=== PATIENT | male | born 1980 | race Caucasian/White ===

== ENCOUNTER 2021-03-28 13:33 | Emergency (ER) | payer OTHER, SELFPAY ==
[~2021-03-28] VITALS: Ht 188 cm; Wt 113.4 kg
[2021-03-28 13:33] VITALS: BP_SYST 140
--- NOTE | 2021-03-28 13:33 | NUR ---
PT TRIAGED IN OUTSIDE TENT, AWAITING ER ROOM AVAILABILITY
--- NOTE | 2021-03-28 13:35 | NUR ---
PT STATES THAT HE TESTED + FOR COVID ON 03/23 AND FEELS HORRIBLE. COUGH WITH SOB, BODY ACHES, FEVERS/CHILLS, FATIGUE. STATES HE IS NOT VACCINATED.
--- NOTE | 2021-03-28 14:31 | NUR ---
ER DR. HUGO EXAMINING PT
[2021-03-28 15:03] LABS: BASOPHILS % (AUTO) 0.2 % (0.0-2.0); HEMATOCRIT 46.2 % (36-54); HEMOGLOBIN 15.9 g/dL (14.0-18.0); LYMPHOCYTES # (AUTO) 1.1 K/uL (1.0-5.5); LYMPHOCYTES % (AUTO) 23.4 % (20.5-51.5); MEAN CORPUSCULAR HEMOGLOBIN 30 pg (27-31); MEAN CORPUSCULAR HGB CONC 35 % (32-36); MEAN CORPUSCULAR VOLUME 88 fL (79.0-98.0); MONOCYTES # (AUTO) 0.4 K/uL (0.0-1.0); MONOCYTES % (AUTO) 8.2 % (1.7-9.3); NEUTROPHILS # (AUTO) 3.3 K/uL (1.8-7.7); NEUTROPHILS % (AUTO) 68.2 % (40.0-70.0); PLATELET COUNT (AUTO) 169 K/uL (130-430); RED BLOOD CELL COUNT(AUTO) 5.24 MIL/uL (4.2-6.2); WHITE BLOOD COUNT (AUTO) 4.9 K/uL (4.8-10.8)
[2021-03-28 15:14] LABS: CREATININE 1.01 mg/dL (0.55-1.30); POTASSIUM 3.9 mmol/L (3.5-5.1)
[2021-03-28 15:19] LABS: ALBUMIN 3.5 g/dL (3.4-4.8); C-REACTIVE PROTEIN QUANT 8.9 mg/dL (0-0.5); TOTAL BILIRUBIN 0.9 mg/dL (0.0-1.0)
--- NOTE | 2021-03-28 15:46 | NUR ---
DR HUGO OUTSIDE TO SPEAK WITH PT.
--- NOTE | 2021-03-28 15:58 | NUR ---
Pt. brought to room 8, BP- 135/78, P-104, temp 101.0, RR 26, has pain from SOB 10/02, O2sat 93% on RA
--- NOTE | 2021-03-28 16:03 | NUR ---
[facility] to speak to Dr. Loya regarding pt status.
[2021-03-28] MEDS ORDERED: IOHEXOL 350 mgI/mL, 150 ML INFUS..BTL IV ONE (16:38)
--- NOTE | 2021-03-28 16:40 | NUR ---
O2 sat decreasing to high 80s on RA started O2 at 2L/min. via NC sat now 92 to 93%
--- NOTE | 2021-03-28 16:51 | NUR ---
consent for CT signed
[2021-03-28] MEDS: DEXAMETHASONE SOD PHOSPHATE 4 MG/ML VIAL IVP ONE (17:01)
--- NOTE | 2021-03-28 17:01 | NUR ---
Patient transported to radiology via wheelchair, accompanied by staff.
--- NOTE | 2021-03-28 17:01 | NUR ---
covid swab obtained
--- NOTE | 2021-03-28 18:12 | NUR ---
TRANSFER INFO [facility] RM: [id number] REPORT:[phone] ACCEPTING: Deloris Ingram 1916 spoke to Kameron
--- NOTE | 2021-03-28 20:32 | NUR ---
Patient to be transferred to [facility]. Is being transferred due to higher level of care. Receiving facility has accepting physician and available space. ER physician has signed transfer form. Patient or responsible libertarian has agreed to transfer and signed form. Patient belongings inventoried and will be sent with patient. Copy of nursing notes, lab reports, EKG, Physicians Orders and X-rays to be sent with patient. Report called to Whitley [phone] at receiving facility. Receiving physician is MD Hernandez. [facility] has been called for transfer. ETA is 2014.
[2021-03-28 20:35] VITALS: BP_SYST 128
== END 2021-03-28 20:32 | disposition short-term general hospital (02) ==
LOC: SED 13:33
DX: U07.1 COVID-19 (principal); J12.82 Pneumonia due to coronavirus disease 2019; R09.02 Hypoxemia; Z88.5 Allergy status to narcotic agent
CPT/HCPCS: 36415; 71045; 71275; 76376; 80053; 83605; 83880; 84484; 85025; 85379; 86140; 87426; 96374; 99285; J1100; Q9967